=== PATIENT | male | born 1935 | race Caucasian/White ===

== ENCOUNTER → 2018-07-17 | Outpatient (CLI) | payer OTHER ==
[~2018-07-17] MED LIST: AFEDITAB CR60 MG PO; ALIGN4 MG PO; AMLODIPINE BESY10 MG PO; ASA81BEC PO; ASPIRIN EC325 M1 PO; ASPIRIN325 PO; CALCIUM 600 +1 EAC9 PO; CARAC30 GM; COUMADIN 10MG T10 M1 PO; COUMADIN7.5 MG PO; COZAAR100 MG PO; DICLOFENAC SOD50 M1 PO; ELEMENTAL CALC600 MG PO; FINASTERIDE PO; FISH OIL 1,0001 EAC5 PO; FISHOIL PO; FUROSEMIDE 40 M40 M1 PO; GLYCOLAX POWDER17 GM PO; HYDROCHLOROTHIA25 M1 PO; JANTOVEN7.5 MG PO; K-DUR 20 MEQ T20 MEQ PO; KLOR-CON PO; LEVAQUIN 750 M750 MG PO; LOSARTAN POTAS100 MG PO; MACULAR VITAMI0.5 MG PO; MELOXICAM PO; MISOPROSTOL 2200 MC1 PO; MOBIC15 MG PO; NEXIUM40 MG PO; NIFEDIPINE ER60 M1 PO; ONDANSETRON HCL4 M1 IV PUSH; PROTONIX PO; SENNA-LAX8.6 MG PO; SYNTHROID50 MCG PO; VITAMIN D400 UNI1 PO; VYTORIN 10-801 EACH PO; ZOCOR80 MG PO; ZOFRAN4 MG PO
== END ==
LOC: HYPER
DX: L97.811 Non-pressure chronic ulcer of other part of right lower leg limited to breakdown of skin (principal); L97.821 Non-pressure chronic ulcer of other part of left lower leg limited to breakdown of skin; I87.2 Venous insufficiency (chronic) (peripheral); L30.9 Dermatitis, unspecified; L98.8 Other specified disorders of the skin and subcutaneous tissue; I10 Essential (primary) hypertension; E78.00 Pure hypercholesterolemia, unspecified; I48.91 Unspecified atrial fibrillation; I42.9 Cardiomyopathy, unspecified; R60.0 Localized edema; Z95.0 Presence of cardiac pacemaker; Z79.01 Long term (current) use of anticoagulants

== ENCOUNTER → 2018-07-24 | Outpatient (CLI) | payer OTHER | LOC: HYPER 06:57 | DX: L97.821 Non-pressure chronic ulcer of other part of left lower leg limited to breakdown of skin (principal); L97.811 Non-pressure chronic ulcer of other part of right lower leg limited to breakdown of skin; I87.2 Venous insufficiency (chronic) (peripheral); L30.9 Dermatitis, unspecified; L98.8 Other specified disorders of the skin and subcutaneous tissue; E78.00 Pure hypercholesterolemia, unspecified; I48.91 Unspecified atrial fibrillation; I42.9 Cardiomyopathy, unspecified; I10 Essential (primary) hypertension; Z79.01 Long term (current) use of anticoagulants; Z95.0 Presence of cardiac pacemaker ==

== ENCOUNTER → 2018-08-07 | Outpatient (CLI) | payer OTHER | LOC: HYPER 07:03 | DX: L97.821 Non-pressure chronic ulcer of other part of left lower leg limited to breakdown of skin (principal); I87.2 Venous insufficiency (chronic) (peripheral); I10 Essential (primary) hypertension; L30.9 Dermatitis, unspecified; L98.8 Other specified disorders of the skin and subcutaneous tissue; I48.91 Unspecified atrial fibrillation; E78.00 Pure hypercholesterolemia, unspecified; Z79.01 Long term (current) use of anticoagulants; Z95.0 Presence of cardiac pacemaker ==